=== PATIENT | male | born 1970 | race Caucasian/White ===

== ENCOUNTER 2025-07-01 17:35 | Emergency (ER) | payer MEDICAID ==
[2025-07-01] MEDS: Ketorolac 30 MG/ML SDV IM ONE (18:14)
[2025-07-01] MEDS ORDERED: Acetaminophen/HYDROcodone 325-5 MG Tab ONE (18:30)
== END 2025-07-01 18:52 | disposition home or self-care (01) ==
LOC: LB.ED 17:35
DX: S83.91XA Sprain of unspecified site of right knee, initial encounter (principal); S80.01XA Contusion of right knee, initial encounter; F17.200 Nicotine dependence, unspecified, uncomplicated; Z88.5 Allergy status to narcotic agent; Z88.8 Allergy status to other drugs, medicaments and biological substances; Z79.899 Other long term (current) drug therapy; X58.XXXA Exposure to other specified factors, initial encounter
CPT/HCPCS: 73562; 96372; 99283; A9270; J2270